=== PATIENT | female | born 1930 | race Caucasian/White ===

== ENCOUNTER 2017-01-08 06:24 | Day surgery (SDC) | payer MEDICARE, MEDICAID ==
[~2017-01-08] VITALS: Ht 144.8 cm; Wt 62.5 kg
[~2017-01-08 06:24] MED LIST: ATARAX-DPS25 MG PO; CAL-GEST200 MG PO; CLARITIN10 M2 PO; DILTIAZEM 24HR240 MG PO; DULCOLAX-DPS10 MG PR; DULERA 200/58.8 GM IH; DUONEB DPS3 ML IH; GLUCAGON1 MG/ML IM; GLUTOSE 1537.5 GM PO; LEVOTHYROXINE75 MCG PO; MAALOX DPS30 ML PO; MURO OU; NORVASC DPS10 MG PO; ORGAN-I NR200 MG PO; PEPCID DPS20 MG PO; PHENERGAN W/COD30 ML PO; SEROQUEL25 MG PO; SURFAK DPS240 MG PO; TYLENOL DPS325 MG PO; TYLENOL WITH C1 EACH PO; XANAX DPS0.25 MG PO
== END 2017-01-08 10:38 | disposition home or self-care (01) ==
LOC: RAD.S 06:24 → EDSTATUS 08:00 → RAD.S 10:38
PROC: 057D3ZZ Dilation of Right Cephalic Vein, Percutaneous Approach (ICD-10-PCS; principal; 2017-01-08)
DX: T82.858A Stenosis of other vascular prosthetic devices, implants and grafts, initial encounter (principal); N18.6 End stage renal disease; Y83.8 Other surgical procedures as the cause of abnormal reaction of the patient, or of later complication, without mention of misadventure at the time of the procedure; Z98.890 Other specified postprocedural states

== ENCOUNTER 2017-03-12 06:24 | Day surgery (SDC) | payer MEDICARE, MEDICAID ==
[~2017-03-12] VITALS: Ht 144.8 cm; Wt 51.2 kg
== END 2017-03-12 10:37 | disposition home or self-care (01) ==
LOC: RAD.S 06:24 → EDSTATUS 08:00 → RAD.S 10:37
PROC: B51MYZA Fluoroscopy of Right Upper Extremity Veins using Other Contrast, Guidance (ICD-10-PCS; principal; 2017-03-12)
PROC: 05HD33Z Insertion of Infusion Device into Right Cephalic Vein, Percutaneous Approach (ICD-10-PCS; principal; 2017-03-12)
DX: T82.858A Stenosis of other vascular prosthetic devices, implants and grafts, initial encounter (principal); N18.6 End stage renal disease; Z79.899 Other long term (current) drug therapy